=== PATIENT | female | born 1975 | race Caucasian/White ===

== ENCOUNTER 2025-02-04 12:42 | Inpatient (IN) | payer OTHER ==
[~2025-02-04] VITALS: Ht 167.6 cm; Wt 119.5 kg
[~2025-02-04 12:42] MED LIST: AMLO5TAB88 PO; HYDR25TA78 PO; INSLIS SUBCUT; LANTUSUD SUBCUT; LOSA100T33 PO; METO-539 PO
[2025-02-04 12:44] VITALS: O2SAT 98
[2025-02-04 13:44] LABS: BASOPHILS % 0.7 % (0.0-2.0); EOSINOPHILS % 0.4 % (0.0-5.0); HEMATOCRIT. 33.6 % (36.0-48.0); HEMOGLOBIN. 10.7 g/dL (12.0-16.0); LYMPHOCYTES % 14.6 % (20.0-50.0); MEAN PLATELET VOLUME 7.1 fl (7.4-10.4); MONOCYTES % 5.7 % (2.0-8.0); NEUTROPHILS % 78.6 % (40.0-76.0); PLATELET 631 x1000/uL (130-400); RED BLOOD CELL COUNT 4.36 mill/uL (4.2-5.4); RED CELL DISTRIBUTION WIDTH 14.9 % (11.6-14.6)
[2025-02-04 13:58] LABS: CREATININE 0.9 mg/dL (0.6-1.0); UREA NITROGEN BLOOD 17 mg/dL (9-23)
[2025-02-04 13:59] LABS: PROTEIN TOTAL 6.4 g/dL (6.0-8.3); TROPONIN I HIGH SENSITIVITY < 4 ng/L (3.0-34)
[2025-02-04 14:00] LABS: ASPARTATE AMINOTRANSFERASE 12 IU/L (<34); BILIRUBIN DIRECT 0.1 mg/dL (<=3.0); BILIRUBIN TOTAL 0.4 mg/dL (0.1-1.0)
[2025-02-04 14:09] LABS: INR 1.0
[2025-02-04] MEDS: SODIUM CHLORIDE 0.9% 1,000 ML IV ONE (14:25)
[2025-02-04 15:54] LABS: HCG SCREEN NEGATIVE
[2025-02-04] MEDS: MORPHINE SULFATE 4 MG/ML INJ (FOR IV/IM USE) IV ONE (16:32)
[2025-02-04] MEDS: FUROSEMIDE 40MG/4ML VIAL IVP ONE (16:32)
[2025-02-04] MEDS ORDERED: IPRATROPIUM/ALBUTEROL 0.5-3(2.5)MG/3ML NEB HHN PRN (19:45)
[2025-02-04] MEDS ORDERED: ONDANSETRON HCL 4MG/2ML INJ IV PRN (19:45)
[2025-02-04] MEDS ORDERED: GUAIFENESIN 200MG/10ML SUGAR FREE UDC PO PRN (19:45)
[2025-02-04] MEDS ORDERED: ACETAMINOPHEN 325MG TABLET PO PRN (19:45)
[2025-02-04] MEDS ORDERED: CLONIDINE 0.1MG TABLET PO PRN (19:45)
[2025-02-04] MEDS: FUROSEMIDE 40MG/4ML VIAL IV SCH (19:45)
[2025-02-04] MEDS: MULTIVITAMINS,THER W-MINERALS TABLET PO SCH (19:45)
[2025-02-04] MEDS ORDERED: DOCUSATE SODIUM 100MG CAPSULE PO PRN (19:45)
[2025-02-04] MEDS ORDERED: MAGNESIUM/ALUMINUM HYDROXIDE/SIMETHICONE 30ML UDC PO PRN (19:45)
[2025-02-04] MEDS ORDERED: HYDRALAZINE 20MG/ML VIAL IV PRN (20:00)
[2025-02-04] MEDS ORDERED: MAGNESIUM 4 G PREMIX 100 ML IV NR (20:00)
[2025-02-04] MEDS ORDERED: DEXTROSE 50% WATER 50ML SYRINGE IV PRN (20:00)
[2025-02-04] MEDS ORDERED: ZOLPIDEM TARTRATE 5MG TABLET PO PRN (20:00)
[2025-02-04 21:08] LABS: *AMPHETAMINES SCREEN URINE NEGATIVE (NEGATIVE); *BARBITURATES SCREEN URINE NEGATIVE (NEGATIVE); *BENZODIAZEPINES SCREEN URINE NEGATIVE (NEGATIVE); *COCAINE SCREEN URINE NEGATIVE (NEGATIVE); CANNABINOID URINE SCREEN PRESUMPTIVE POSITIVE (NEGATIVE); METHADONE URINE SCREEN NEGATIVE (NEGATIVE); OPIATES URINE SCREEN NEGATIVE (NEGATIVE); PHENCYCLIDINE URINE SCREEN NEGATIVE (NEGATIVE)
[2025-02-04 21:09] LABS: ECSTASY MDMA SCREEN URINE NEGATIVE (NEGATIVE)
[2025-02-04 21:44] LABS: PHOSPHORUS 4.0 mg/dL (2.5-4.9)
[2025-02-04 21:45] LABS: TROPONIN I HIGH SENSITIVITY < 4 ng/L (3.0-34)
[2025-02-04 21:48] LABS: FOLIC ACID (FOLATE) SERUM 6.38 ng/mL (>5.38)
[2025-02-04 22:00] VITALS: BP 140/82; PULSE 102; RESP 18; TEMP 36.9; O2SAT 100
[2025-02-04 22:12] LABS: VITAMIN B12 SERUM > 2000 pg/mL (211-911)
[2025-02-04 22:15] VITALS: BP 140/82; PULSE 102; RESP 18; TEMP 36.9; TEMP 36.974; O2SAT 100
[2025-02-04] MEDS ORDERED: IOHEXOL-350 100 ML BOTTLE ONE (23:33)
[2025-02-05] VITALS: BP_SYST 111; BP_SYST 123; BP_DIAS 68; BP_DIAS 73; PULSE 105; PULSE 93; RESP 18; TEMP 36.1; TEMP 36.4; O2SAT 95; O2SAT 97
[2025-02-05] MEDS: BLOOD SUGAR DIAGNOSTIC STRIP TEST SCH
[2025-02-05] MEDS: FAMOTIDINE 20MG TABLET PO SCH (01:24)
[2025-02-05] MEDS: ATORVASTATIN CALCIUM 20MG TABLET PO SCH (01:25)
[2025-02-05] MEDS: INSULIN LISPRO 100 UNITS/ML SUBCUT SCH ×2 (01:28→16:45)
[2025-02-05] MEDS: METOPROLOL TARTRATE 25MG TABLET PO SCH (01:33)
[2025-02-05] MEDS: AMLODIPINE 5MG TABLET PO SCH (01:33)
[2025-02-05] MEDS: HYDRALAZINE HCL 25MG TABLET PO SCH (01:41)
[2025-02-05] MEDS: HYDROCODONE/ACETAMINOPHEN 5/325MG TABLET PO PRN (01:50)
[2025-02-05] MEDS: INSULIN GLARGINE 100 UNITS/ML SUBCUT SCH (03:42)
[2025-02-05 04:00] VITALS: BP 111/68; PULSE 93; RESP 18; TEMP 36.1; O2SAT 97
[2025-02-05 07:12] LABS: BASOPHILS % 1.0 % (0.0-2.0); EOSINOPHILS % 1.0 % (0.0-5.0); HEMATOCRIT. 35.4 % (36.0-48.0); HEMOGLOBIN. 11.3 g/dL (12.0-16.0); LYMPHOCYTES % 18.4 % (20.0-50.0); MEAN PLATELET VOLUME 7.2 fl (7.4-10.4); MONOCYTES % 5.9 % (2.0-8.0); NEUTROPHILS % 73.7 % (40.0-76.0); PLATELET 630 x1000/uL (130-400); RED BLOOD CELL COUNT 4.53 mill/uL (4.2-5.4); RED CELL DISTRIBUTION WIDTH 15.1 % (11.6-14.6)
[2025-02-05 07:33] LABS: PROTEIN TOTAL 6.2 g/dL (6.0-8.3)
[2025-02-05 07:36] LABS: CREATININE 0.9 mg/dL (0.6-1.0); T4 FREE 1.40 ng/dL (0.89-1.76); TRIGLYCERIDE 207 mg/dL (0-150); UREA NITROGEN BLOOD 14 mg/dL (9-23)
[2025-02-05 07:37] LABS: ASPARTATE AMINOTRANSFERASE 16 IU/L (<34); LDL CHOLESTEROL 122 mg/dL (5-100)
[2025-02-05 07:38] LABS: BILIRUBIN DIRECT 0.1 mg/dL (<=3.0); BILIRUBIN TOTAL 0.3 mg/dL (0.1-1.0); PHOSPHORUS 4.6 mg/dL (2.5-4.9)
[2025-02-05 07:40] LABS: TROPONIN I HIGH SENSITIVITY < 4 ng/L (3.0-34)
[2025-02-05 08:00] VITALS: BP 123/79; PULSE 113; RESP 18; TEMP 36.3; O2SAT 99
[2025-02-05 10:06] LABS: BG BASE EXCESS 3.6 mmol/L (-2.0-3.0); BG CARBOXYHEMOGLOBIN 0.5 % (0.5-1.5); BG DEOXYHEMOGLOBIN 2.0 % (0.0-5.0); BG FRACTION INSPIRED OXYGEN 21; BG HCO3 ACT 26.1 mmol/L (21.0-28.0); BG METHEMOGLOBIN 0.3 % (0.5-1.5); BG OXYGEN SATURATION 98.0 % (94.0-98.0); BG OXYHEMOGLOBIN 97.2 % (94.0-98.0); BG PCO2 32.5 mmHg (32.0-45.0); BG PH 7.523 (7.350-7.450); BG PO2 98.6 mmHg (83.0-108.0); BG SAMPLE SITE RIGHT RADIAL; BG TOTAL HEMOGLOBIN 11.1 g/dL (12.0-16.0); BG VENT MODE ROOM AIR
[2025-02-05 12:00] VITALS: BP 121/76; PULSE 100; RESP 19; TEMP 36.4; O2SAT 98
[2025-02-05] MEDS: ENOXAPARIN 30MG/0.3ML SYR SUBCUT SCH (13:00)
[2025-02-05 16:00] VITALS: BP 110/77; PULSE 100; RESP 19; TEMP 36.7; O2SAT 98
[2025-02-05] MEDS ORDERED: INSULIN REGULAR (HUMULIN R) 1000UNITS/10ML VIAL IV NR (17:43)
[2025-02-05] MEDS ORDERED: IBUPROFEN 600MG TABLET PO NR (17:49)
[2025-02-05 20:00] VITALS: BP 127/74; PULSE 115; RESP 17; TEMP 36.5; O2SAT 98
[2025-02-06] VITALS: BP 125/68; PULSE 97; RESP 16; TEMP 36.4; O2SAT 98
[2025-02-06 04:00] VITALS: BP 128/76; PULSE 97; RESP 16; TEMP 36.2; O2SAT 98
[2025-02-06 08:00] VITALS: BP 127/76; PULSE 98; RESP 18; TEMP 36.6; O2SAT 99
[2025-02-06] MEDS: FUROSEMIDE 40MG TABLET PO SCH (09:41)
[2025-02-06 12:07] VITALS: BP 115/76; PULSE 97; RESP 18; TEMP 36.6; O2SAT 97
[2025-02-06] MEDS: DICLOFENAC SODIUM 1% GEL 50GM TOP SCH (14:06)
[2025-02-06 16:00] VITALS: BP 117/71; PULSE 98; RESP 18; TEMP 36.1; O2SAT 98
[2025-02-06 20:00] VITALS: BP 121/69; PULSE 116; RESP 18; TEMP 36.2; O2SAT 98
[2025-02-06] MEDS ORDERED: DULOXETINE HCL 30MG DR CAPSULE PO SCH (21:00)
[2025-02-06] MEDS: PREGABALIN 25MG CAPSULE PO SCH (21:45)
[2025-02-06 23:15] LABS: CLARITY URINE CLEAR (CLEAR); GLUCOSE URINE TRACE (NEGATIVE); KETONES URINE NEGATIVE (NEGATIVE); LEUKOCYTE ESTERASE URINE 2+ (NEGATIVE); NITRITE URINE NEGATIVE (NEGATIVE); OCCULT BLOOD URINE NEGATIVE (NEGATIVE); PH URINE 6.5 (4.5-8.0); PROTEIN URINE TRACE (NEGATIVE); SPECIFIC GRAVITY URINE 1.010 (1.005-1.030); UROBILINOGEN URINE 0.2 E.U./dL (0.2-1.0)
[2025-02-06 23:27] LABS: COLOR URINE STRAW (YELLOW)
[2025-02-06 23:28] LABS: BACTERIA URINE TRACE; RBC URINE NONE SEEN /hpf (0-2); SQUAMOUS EPITHELIAL CELL URINE FEW /lpf (RARE/1+)
[2025-02-06 23:29] LABS: MUCUS URINE TRACE /lpf (< = 2+)
[2025-02-07] VITALS: BP 116/70; PULSE 93; RESP 18; TEMP 36.4; O2SAT 98
[2025-02-07 04:00] VITALS: BP 106/65; PULSE 65; RESP 17; TEMP 36.1; O2SAT 95
[2025-02-07 07:29] LABS: BASOPHILS % 1.0 % (0.0-2.0); CREATININE 0.9 mg/dL (0.6-1.0); EOSINOPHILS % 1.2 % (0.0-5.0); HEMATOCRIT. 31.7 % (36.0-48.0); HEMOGLOBIN. 10.2 g/dL (12.0-16.0); LYMPHOCYTES % 23.8 % (20.0-50.0); MEAN PLATELET VOLUME 7.6 fl (7.4-10.4); MONOCYTES % 5.2 % (2.0-8.0); NEUTROPHILS % 68.8 % (40.0-76.0); PLATELET 490 x1000/uL (130-400); RED BLOOD CELL COUNT 4.14 mill/uL (4.2-5.4); RED CELL DISTRIBUTION WIDTH 14.4 % (11.6-14.6); UREA NITROGEN BLOOD 12 mg/dL (9-23)
[2025-02-07 08:00] VITALS: BP 128/77; PULSE 86; RESP 16; TEMP 36.2; O2SAT 98
[2025-02-07 12:00] VITALS: BP 119/73; PULSE 74; RESP 16; TEMP 36.3; O2SAT 97
[2025-02-07] MEDS: ACETAMINOPHEN 325MG TABLET PO PRN (13:41)
[2025-02-07 16:00] VITALS: BP 124/71; PULSE 70; RESP 16; TEMP 36.6; O2SAT 98
[2025-02-07 20:00] VITALS: BP 131/71; PULSE 17; RESP 17; TEMP 35.9; O2SAT 97
[2025-02-08] VITALS: BP 103/62; PULSE 99; RESP 18; TEMP 36.4; O2SAT 98
[2025-02-08 04:00] VITALS: BP 130/80; PULSE 94; RESP 17; TEMP 36.5; O2SAT 99
[2025-02-08 08:00] VITALS: BP 144/79; PULSE 96; RESP 18; TEMP 36.5; O2SAT 96
[2025-02-08] MEDS: FERROUS SULFATE 325MG TABLET PO SCH (10:20)
[2025-02-08] MEDS ORDERED: ATOR20TA65 MT (10:27)
[2025-02-08] MEDS ORDERED: FERR325T6 MT (10:27)
[2025-02-08] MEDS ORDERED: FURO40TA5 MT (10:27)
[2025-02-08] MEDS ORDERED: METF-416 MT (10:27)
[2025-02-08] MEDS ORDERED: HYDR25TA78 PO (10:27)
[2025-02-08] MEDS ORDERED: INSU100I28 SQ (10:27)
[2025-02-08] MEDS ORDERED: EMPA10TA MT (10:27)
[2025-02-08] MEDS ORDERED: METO-539 PO (10:27)
[2025-02-08] MEDS ORDERED: LOSA100T33 PO (10:27)
[2025-02-08] MEDS ORDERED: BLOO-1465 MT (10:29)
[2025-02-08] MEDS ORDERED: BLOO1KIT74 TP (10:29)
[2025-02-08 12:00] VITALS: BP 124/73; PULSE 96; RESP 18; TEMP 36.6; O2SAT 96
[2025-02-08 16:00] VITALS: BP 120/79; PULSE 100; RESP 18; TEMP 36.8; O2SAT 100
[2025-02-08 18:20] VITALS: BP 120/79; PULSE 108; RESP 16; TEMP 98.2
== END 2025-02-08 18:52 | disposition home or self-care (01) | DRG 206 ==
LOC: ER 12:42 → EDBEDREQ 17:51 → EDBEDREQTM 17:51 → 5WST 22:07
PROVIDERS: ADMIT Internal Medicine; ATTEND Internal Medicine
DX: M94.0 Chondrocostal junction syndrome [Tietze] (principal); L03.313 Cellulitis of chest wall; E11.65 Type 2 diabetes mellitus with hyperglycemia; E66.813 Obesity, class 3; I10 Essential (primary) hypertension; Z59.00 Homelessness unspecified; Z68.41 Body mass index [BMI] 40.0-44.9, adult; E11.40 Type 2 diabetes mellitus with diabetic neuropathy, unspecified; M75.00 Adhesive capsulitis of unspecified shoulder; I89.0 Lymphedema, not elsewhere classified; F41.9 Anxiety disorder, unspecified; R26.89 Other abnormalities of gait and mobility; E78.5 Hyperlipidemia, unspecified; M79.7 Fibromyalgia; Z91.148 Patient's other noncompliance with medication regimen for other reason; Z79.4 Long term (current) use of insulin
CPT/HCPCS: 36415; 36600; 71275; 80048; 80061; 80076; 80305; 81003; 82010; 82375; 82550; 82607; 82728; 82746; 82805; 82962; 83036; 83540; 83550; 83735; 83880; 84100; 84439; 84443; 84484; 84703; 85025; 85044; 85379; 93005; 93970; 97110; 97162; 97166; 97530; 97535; 99285; A4565; J0360; J1650; J1815; J1938; J2270; J3475; J7030; Q9967